=== PATIENT | female | born 1995 | race Caucasian/White ===

== ENCOUNTER 2024-11-26 08:43 | Emergency (ER) | payer BC, SELFPAY ==
[2024-11-26 09:05] VITALS: BP 117/64; PULSE 74; RESP 18; TEMP 36.6; O2SAT 99
--- NOTE | 2024-11-26 09:14 | ED_ITS ---
HPI - URI/Sore Throat General Chief Complaint: Upper Respiratory Infection Stated Complaint: SORE THROAT/COUGH/CONGESTION/EYE REDNESS Time Seen by Provider: 11/26/24 09:14 Source: patient Mode of arrival: ambulatory Limitations: no limitations History of Present Illness HPI Narrative: 29 yo F presents with c/o sore throat, congestion, cough for approx. 7 days. Sinus pressure and headaches. Reports redness to eyes with drainage for 2-3 days. No vision changes. Taking [id number] cold medications to treat symptoms. No chest pain or shortness of breath. Recently traveled to [place]. All systems reviewed and negative except as noted above. Related Data Home Medications ?Medication ?Instructions ?Recorded ?Confirmed ?Last Taken ?Type escitalopram oxalate 20 mg tablet 20 mg PO DAILY 11/26/24 11/26/24 Unknown History melatonin 5 mg capsule 5 mg PO HS 11/26/24 11/26/24 Unknown History Allergies Allergy/AdvReac Type Severity Reaction Status Date / Time Penicillins Allergy Unknown rash Unverified 11/26/24 09:04 AMOXICILLIN TRIHYDRATE Allergy Mild RASH Uncoded 11/26/24 09:04 Shrimp Allergy Mild Vomiting Uncoded 11/26/24 09:04 Review of Systems Review of Systems: CONSTITUTIONAL: Denies fever, chills, or sweats. Reports fatigue. EYES: Denies visual changes. Reports redness and discharge bilateral. ENT: Reports rhinorrhea, congestion, sore throat. Denies otalgia. CARDIOVASCULAR: Denies chest pain, palpitations, or edema. RESPIRATORY: Reports cough. Denies dyspnea. GASTROINTESTINAL: Denies abdominal pain, nausea, vomiting, or diarrhea. GENITOURINARY: Denies dysuria or hematuria. SKIN: Denies rash or itching. MUSCULOSKELETAL: Denies back pain, joint pain, or myalgia. NEUROLOGIC: Denies headache, numbness, or weakness. PSYCHIATRIC: Denies anxiety or depression. All other systems reviewed are negative, except as documented in HPI. PMFSH Comments At time of signature, agree with nursing past medical, surgical, social and family history. There is no relevant family history pertinent to the presenting complaint. Exam Narrative: GENERAL: This is a well-nourished, well-developed patient, in no apparent distress. HEAD: normocephalic, atraumatic. EYES: PERRL. Conjunctiva erythematous bilateral with yellow drainage. Vision is grossly intact. EARS: External ears normal, auditory canals clear and without drainage, TMs normal without perforation. Hearing grossly intact. NOSE: External nose normal with purulent nasal drainage, tenderness to bilateral maxillary sinus on palpation THROAT: Mucous membranes moist, mild erythema postnasal drainage. No swelling or exudates NECK: Neck supple, non-tender without lymphadenopathy, masses or thyromegaly. CARDIOVASCULAR: Regular rate and rhythm without murmurs, gallops, or rubs. RESPIRATORY: Clear to auscultation. Breath sounds equal bilaterally. No wheezes, rales, or rhonchi. SKIN: warm, Dry, intact with no suspicious lesions or rash, good texture and turgor. NEURO: awake, alert, and oriented to person, place and time. There were no obvious focal neurologic abnormalities. EXTREMITIES: No joint tenderness, effusion, or edema noted. Course Course Level of Care: Express Care Visit Vital Signs Vital signs: Vital Signs Temperature 36.6 C 11/26/24 09:05 Pulse Rate 74 11/26/24 09:05 Respiratory Rate 18 11/26/24 09:05 Blood Pressure 117/64 11/26/24 09:05 Pulse Oximetry 99 11/26/24 09:05 Temperature 36.6 C 11/26/24 09:05 Pulse Rate 74 11/26/24 09:05 Respiratory Rate 18 11/26/24 09:05 Blood Pressure 117/64 11/26/24 09:05 Pulse Oximetry 99 11/26/24 09:05 Reviewed MDM - URI/Sore Throat MDM Narrative Medical decision making narrative: Will treat patient for bacterial sinusitis due to duration of symptoms and exam findings. Lungs clear to auscultation. Patient is alert, nontoxic. Agrees with plan of care. Differential Diagnosis Differential diagnosis: Likely upper respiratory infection, sinusitis, viral infection, pharyngitis and other (COVID) Lab Data Labs: Lab Results 11/26/24 11/26/24 Range/Units 09:13 09:32 POC SARS CoV-2 Ag Negative (Negative) POC Grp A Strep Screen Negative (Negative) Discharge Plan Discharge Clinical Impression: Acute bacterial sinusitis, Acute bacterial conjunctivitis of both eyes Patient Disposition: Home Condition: Stable Instructions: Antibiotic Form, Sinusitis (ED) Additional Instructions: Your COVID and strep test were negative today. Take antibiotic as prescribed until gone. Continue taking [id number] medication to treat her symptoms such as DayQuil NyQuil cold and Sinus. Drink at least 64 oz of water a day. Place antibiotic eyedrops as prescribed. Wash hands before and after placing eyedrops. See your doctor if symptoms are not improving. Patient Language: Turkmen Prescriptions: New doxycycline hyclate 100 mg capsule 100 mg PO BID 7 Days Qty: 14 0RF polymyxin B sulf-trimethoprim 10,000 unit- 1 mg/mL drops 1 drp EACH EYE Q3H 7 Days Qty: 10 0RF Rx Instructions: while awake; do not exceed 6 doses in 24 hours No Action escitalopram oxalate 20 mg tablet 20 mg PO DAILY melatonin 5 mg capsule 5 mg PO HS Follow-up/Referrals: Jaz,MERCEDES Lucas [Primary Care Provider] - Time of Disposition: 09:29
[2024-11-26 09:15] LABS: EDSTREPNEGPOS1 Negative (Negative)
[2024-11-26 09:35] LABS: EDCOVIDSCREEN Negative (Negative)
== END 2024-11-26 09:32 | disposition home or self-care (01) ==
PROVIDERS: Emergency Provider Nurse Practitioner Family; PCP Physician Assistant
DX: J01.90 Acute sinusitis, unspecified (principal); H10.33 Unspecified acute conjunctivitis, bilateral; Z20.822 Contact with and (suspected) exposure to COVID-19
CPT/HCPCS: 87081; 87426; 87880; 99203; G0463